=== PATIENT | female | born 1975 | race Caucasian/White ===

== ENCOUNTER 2020-10-20 10:51 | Emergency (ER) | payer OTHER ==
[2020-10-20 11:08] VITALS: BP 135/85; PULSE 68; TEMP 98.2; BMI 23.6
[2020-10-20 12:44] LABS: EPI CELLS >36 /uL (0-25.1); HYALINE CASTS 4 /uL (0-3.1); PH,URINE 7.5 (5.0-8.0); URINE APPEARANCE CLOUDY; URINE BACTERIA 5694 /uL (0-1359); URINE BILIRUBIN NEGATIVE (NEGATIVE); URINE COLOR YELLOW; URINE GLUCOSE (UA) NEGATIVE (NEGATIVE); URINE KETONE NEGATIVE (NEGATIVE); URINE LEUK ESTERASE 3+ (NEGATIVE); URINE NITRITE NEGATIVE (NEGATIVE); URINE PROTEIN TRACE (NEGATIVE); URINE RBC 94 /uL (0-23.9); URINE UROBILINOGEN 0.2 mg/dL (0.2-1.0); URINE WBC 1345 /uL (0-25.8)
== END 2020-10-20 12:53 | disposition home or self-care (01) ==
LOC: JERFT 10:51
DX: N30.00 Acute cystitis without hematuria (principal)
CPT/HCPCS: 81003; 87086; 87186; 99283-25

== ENCOUNTER 2021-02-03 09:39 | Emergency (ER) | payer OTHER ==
[2021-02-03 09:46] VITALS: BP 162/88; PULSE 88; TEMP 97.9; BMI 23.8
[2021-02-03] MEDS ORDERED: ASPIRIN 81 MG CHEWABLE TABLETS PO ONE (10:08)
[2021-02-03] MEDS ORDERED: SODIUM CHLORIDE 1,000 ML IV STA (10:08)
[2021-02-03] MEDS ORDERED: METOCLOPRAMIDE HCL INJECTION 10 MG/2 ML VIAL IVPUSH ONE (10:38)
[2021-02-03] MEDS ORDERED: ACETAMINOPHEN 1000 MG/100 ML VIAL (NON FORMULARY) IVPB ONE (10:38)
[2021-02-03] MEDS ORDERED: METOCLOPRAMIDE HCL INJECTION 10 MG/2 ML VIAL ONE (11:15)
[2021-02-03] MEDS ORDERED: ACETAMINOPHEN INJECTION 100 ML IVPB ONE (11:15)
[2021-02-03] MEDS ORDERED: ASPIRIN 81 MG CHEWABLE TABLETS ONE (11:15)
[2021-02-03 12:44] LABS: BASO % 0.8 % (0-2.0); EOS % 0.4 % (0-4.5); HEMATOCRIT 37.9 % (32.4-45.2); HEMOGLOBIN 12.7 GM/dL (10.7-15.3); LYMPH % 31.5 % (8-40); MCH 30.8 pg (25.7-33.7); MCHC 33.6 g/dl (32.0-36.0); MEAN CELL VOLUME 91.7 fl (80-96); MEAN PLT VOLUME 9.2 fl (7.5-11.1); MONO % 7.7 % (3.8-10.2); NEUT % 59.6 % (42.8-82.8); PLATELET COUNT 223 10^3/uL (134-434); RBC 4.13 M/mm3 (3.60-5.2); RDW 12.9 % (11.6-15.6); WHITE BLOOD COUNT 5.3 K/mm3 (4.0-10.0)
[2021-02-03 12:54] LABS: URINE APPEARANCE CLEAR; URINE BILIRUBIN NEGATIVE (NEGATIVE); URINE COLOR YELLOW; URINE GLUCOSE (UA) NEGATIVE (NEGATIVE); URINE KETONE 1+ (NEGATIVE); URINE LEUK ESTERASE TRACE (NEGATIVE); URINE NITRITE NEGATIVE (NEGATIVE); URINE PROTEIN NEGATIVE (NEGATIVE)
[2021-02-03 13:00] LABS: CHLORIDE 103 mmol/L (98-107); SODIUM 135 mmol/L (136-145)
[2021-02-03 13:02] LABS: CALCIUM 10.8 mg/dL (8.5-10.1); GLUCOSE,RANDOM 79 mg/dL (74-106)
[2021-02-03 13:03] LABS: ANION GAP 7 MMOL/L (8-16); BLOOD UREA NITROGEN 9.9 mg/dL (7-18); CO2 26 mmol/L (21-32); MAGNESIUM 2.2 mg/dL (1.8-2.4)
[2021-02-03 13:06] LABS: SGOT/AST 12 U/L (15-37); SGPT/ALT 21 U/L (13-61)
[2021-02-03 13:07] LABS: BILIRUBIN,TOTAL 0.5 mg/dL (0.2-1)
[2021-02-03 13:09] LABS: ALK PHOS 66 U/L (45-117)
[2021-02-03] MEDS ORDERED: KETOROLAC TROMETHAMINE 15 MG/ML VIAL IVPUSH ONE (13:28)
[2021-02-03 14:28] LABS: URINE RBC 7.2 /uL (0-23.9); URINE WBC 9.7 /uL (0-25.8)
[2021-02-03 14:29] LABS: EPI CELLS 4.4 /uL (0-25.1); URINE BACTERIA 340.1 /uL (0-1359)
[2021-02-03] MEDS ORDERED: KETOROLAC TROMETHAMINE 15 MG/ML VIAL ONE (14:33)
== END 2021-02-03 14:37 | disposition home or self-care (01) ==
LOC: JER 09:39
PROC: 3E0333Z Introduction of Anti-inflammatory into Peripheral Vein, Percutaneous Approach (ICD-10-PCS; principal; 2021-02-03)
PROC: 3E033NZ Introduction of Analgesics, Hypnotics, Sedatives into Peripheral Vein, Percutaneous Approach (ICD-10-PCS; 2021-02-03)
PROC: 3E033GC Introduction of Other Therapeutic Substance into Peripheral Vein, Percutaneous Approach (ICD-10-PCS; 2021-02-03)
PROC: 3E033GC Introduction of Other Therapeutic Substance into Peripheral Vein, Percutaneous Approach (ICD-10-PCS; 2021-02-03)
PROC: 3E0337Z Introduction of Electrolytic and Water Balance Substance into Peripheral Vein, Percutaneous Approach (ICD-10-PCS; 2021-02-03)
DX: R07.9 Chest pain, unspecified (principal)
CPT/HCPCS: 36415; 71046-TC-FY; 80053; 81003; 82550; 83735; 84484; 85025; 87086; 93005; 93010; 99284-25; C9803; J0131; U0003; U0005

== ENCOUNTER 2021-05-08 14:17 | Emergency (ER) | payer OTHER ==
[2021-05-08 15:06] VITALS: BP 115/80; PULSE 76; TEMP 98.5; BMI 24.3
[2021-05-10 12:07] LABS: SARS-CoV-2 NAA Detected (Not Detected)
== END 2021-05-08 15:50 | disposition home or self-care (01) ==
LOC: JER 14:17
DX: B34.9 Viral infection, unspecified (principal)
CPT/HCPCS: 87804; 99283-25; C9803; U0003; U0005